=== PATIENT | female | born 1945 | race Caucasian/White ===

== ENCOUNTER 2016-06-02 07:29 | Day surgery (SDC) | payer MEDICARE ==
[2016-05-31 17:13] LABS: HEMATOCRIT 45.6 % (36.0-48.0); HEMOGLOBIN 14.7 g/dL (12.0-16.0)
[2016-05-31 17:28] LABS: CALCIUM, SERUM 9.5 MG/DL (8.5-10.4); CHLORIDE, SERUM 108 MMOL/L (96-112); CO2 (CARBON DIOXIDE) 28 MMOL/L (24-34); CREATININE 1.02 MG/DL (0.55-1.02); GFR AFRICAN AMERICAN 65 ML/MIN (>=60); GFR NON AFRICAN AMERICAN 56 ML/MIN (>=60); GLUCOSE, SERUM 79 MG/DL (60-99); POTASSIUM, SERUM 4.3 MMOL/L (3.5-5.3); SODIUM, SERUM 143 MMOL/L (135-148)
[2016-05-31 17:29] LABS: BUN (BLOOD UREA NITROGEN) 19 MG/DL (6-23)
--- NOTE | ~2016-06-02 | OP ---
Record Of Operation [facility] [address] [place]. [address] NAME: CHARLIE MATA : 45 STATUS : [facility]#: [id number] AGE: 70 ADM/REG DATE : 06/02/16 MR#: [id number] REPORT SERV DATE: 06/02/16 DICTATED BY: ISRAEL SHERIFF DATE: 06/02/16 REPORT STATUS : Draft TRANSCRIBED BY: FLORENTIN DATE: 06/02/16 DATE OF PROCEDURE: 06/02/2016 PREOPERATIVE DIAGNOSES: 1. Incarcerated bilateral inguinal hernias. 2. Coronary artery disease. 3. Obesity. 4. History of supraventricular tachycardia. 5. Gastroesophageal reflux disease. POSTOPERATIVE DIAGNOSES: 1. Incarcerated bilateral inguinal hernias (direct and indirect). 2. Coronary artery disease. 3. Obesity. 4. History of supraventricular tachycardia. 5. Gastroesophageal reflux disease. PROCEDURE: Open incarcerated direct and indirect bilateral inguinal hernias with mesh. ANESTHESIA: General. SURGEON: Israel Sheriff M.D. SCOURER: Geovani. COMPLICATIONS: None. DRAINS: None. ESTIMATED BLOOD LOSS: 30 mL. FINDINGS: The patient was noted to have bilateral incarcerated direct and indirect inguinal hernias. The right was larger than the left. OPERATIVE TECHNIQUE: The patient was brought to the operating room and placed on the table in supine position. She had preoperative IV antibiotics. She had sequential hose in place. She voided prior to the procedure. She underwent general endotracheal anesthesia and was prepped and draped in sterile fashion. A time-out was completed. Local anesthesia was instilled to the proposed skin incision sites that were previously marked two fingerbreadths above the pubic tubercle extending toward the anterior iliac spine. The incision began on the left side. The incision was carried down to the anterior fascia using electrocautery. The fascia was then divided in the direction of the superficial fibers with the Metzenbaum scissors through the superficial ring. Careful blunt dissection was ensued until the flaps were developed until the internal oblique aponeurosis, and the iliopubic tract were clearly identified. The patient noted to have a large direct inguinal defect. The round ligament was identified and carefully encircled and elevated with a [employer] drain. She was noted to Record Of Operation [facility] [address] [facility] [place]. [address] NAME: CHARLIE MATA : 45 STATUS : [facility] PAT#: [id number] AGE: 70 ADM/REG DATE : 06/02/16 MR#: [id number] REPORT SERV DATE: 06/02/16 DICTATED BY: ISRAEL SHERIFF DATE: 06/02/16 REPORT STATUS : Draft TRANSCRIBED BY: MODL DATE: 06/02/16 have a lipoma of the cord on the left side as well as the indirect inguinal hernia sac. These were grasped and carefully dissected away from the round ligament without difficulty. They were reduced en jolie backed into the deep ring which was then secured with a plug and the ring to the fascial edges with 2-0 Prolene sutures. The pelvic floor was then reconstructed after the direct inguinal hernia was carefully dissected away and reduced. The mesh was placed in the pelvic floor and secured to the pubic tubercle with a 2-0 Prolene suture and inferiorly was run to the internal oblique aponeurosis, lateral to where the round ligament exited the deep ring. An additional 2-0 Prolene suture was placed at the previous medial wound at the pubic tubercle and this secured the mesh to the internal oblique aponeurosis from medial to lateral. The two lids of the mesh were reapproximated lateral to the round ligament without tension. There was no evidence of any other hernias, defects, bleeding, or other abnormalities, and the wound was then thoroughly irrigated. The anterior fascia was reapproximated using a running 0 Vicryl suture. The skin and subcu tissues were reapproximated using running 3-0 Vicryl suture. The skin edges were then reapproximated using running subcuticular Monocryl suture. Dermabond was applied. At this time, attention was turned to the right side. The procedure proceeded exactly as described for the left and the findings were exactly the same except for a somewhat larger direct inguinal defect. The procedure proceeded exactly as described along with mesh placement and closure. After the glue was placed on the right incision, the patient was extubated, and taken to the recovery room in stable condition. All sponge and needle counts reported correct. FRANK/FLORENTIN Israel Sheriff M.D. / [id number] CC: Ghazal Franklin M.D. Thomas Weldon, M.D.
[~2016-06-02 07:29] MED LIST: ASAB PO; BEN25 PO; BIOTIN5 MG PO; CO Q-10100 MG PO; DETROLLA4 PO; DITROPAN XL10 MG PO; FLAXSEED OIL1000 MG PO; IMDUR30 PO; LIDODERM TOP; LIPITOR40 PO; LYRICA100 MG PO; NIACIN100 PO; SLO-NIACIN250 MG PO; SYN075 PO; TOPXL100 PO; VITAMIN B-2100 MG PO; VITAMIN D1000 UNI1 PO; VITE1000 PO; WELLXL150 PO
== END 2016-06-02 14:32 | disposition home or self-care (01) ==
LOC: SDC 07:29
PROVIDERS: Surgery
PROC: 0YUA0JZ Supplement Bilateral Inguinal Region with Synthetic Substitute, Open Approach (ICD-10-PCS; principal; 2016-06-02 09:00)
DX: K40.00 Bilateral inguinal hernia, with obstruction, without gangrene, not specified as recurrent (principal); I25.10 Atherosclerotic heart disease of native coronary artery without angina pectoris; E66.9 Obesity, unspecified; I47.1 Supraventricular tachycardia; E03.9 Hypothyroidism, unspecified; K21.9 Gastro-esophageal reflux disease without esophagitis; F41.9 Anxiety disorder, unspecified; E78.00 Pure hypercholesterolemia, unspecified; I10 Essential (primary) hypertension; Z88.5 Allergy status to narcotic agent; Z88.6 Allergy status to analgesic agent; Z95.5 Presence of coronary angioplasty implant and graft; Z98.890 Other specified postprocedural states; Z90.49 Acquired absence of other specified parts of digestive tract; Z98.84 Bariatric surgery status; Z98.51 Tubal ligation status
CPT/HCPCS: 80048; 85014; 85018; 93005; A9270-GY; C1781; J0690; J1885; J2250; J2270; J2405; J2550; J2710; J3010

== ENCOUNTER 2016-06-15 12:33 | Emergency (ER) | payer MEDICARE ==
[2016-06-15 14:58] LABS: BASOPHILS 0.6 %; BASOPHILS ABSOLUTE 0.06 10/3/uL (0.0-0.16); EOSINOPHILS 12.8 %; EOSINOPHILS ABSOLUTE 1.25 10/3/uL (0.0-0.53); HEMATOCRIT 45.5 % (36.0-48.0); HEMOGLOBIN 14.6 g/dL (12.0-16.0); IMMATURE GRANULOCYTES 0.2 %; IMMATURE GRANULOCYTES ABSOLUTE 0.02 10/3/uL (0.0-0.11); LYMPHOCYTES 31.2 %; LYMPHOCYTES ABSOLUTE 3.04 10/3/uL (0.67-4.30); MEAN CORPUS HGB CONC 32.1 g/dL (32.0-36.0); MONOCYTES 9.5 %; MONOCYTES ABSOLUTE 0.93 10/3/uL (0.21-1.20); NEUTROPHILS 45.7 %; NEUTROPHILS ABSOLUTE 4.44 10/3/uL (2.02-8.40); PLATELET COUNT 207 10/3/uL (150-400); RBC DISTRIBUTION WIDTH 12.9 % (12.0-16.0); RED CELL COUNT 4.64 10/6/uL (4.0-5.6)
[2016-06-15 14:59] LABS: ER CBC TAT 0 Hrs 08 Mins; MANUAL DIFF NO %; MEAN CORPUSCULAR HEMOGLOB 31.5 pg (26.0-34.0); MEAN CORPUSCULAR VOLUME 98.1 fL (80-100); WHITE BLOOD CELLS 9.7 10/3/uL (4.5-10.5)
[2016-06-15 15:49] LABS: A/G RATIO 0.8 (0.7-1.9); ALBUMIN 3.1 G/DL (3.5-5.0); CALCIUM, SERUM 9.6 MG/DL (8.5-10.4); CHLORIDE, SERUM 103 MMOL/L (96-112); CO2 (CARBON DIOXIDE) 28 MMOL/L (24-34); CREATININE 0.98 MG/DL (0.55-1.02); GFR AFRICAN AMERICAN 68 ML/MIN (>=60); GFR NON AFRICAN AMERICAN 58 ML/MIN (>=60); GLOBULIN 3.7 G/DL (2.5-4.1); GLUCOSE, SERUM 88 MG/DL (60-99); SGOT(AST) 17 U/L (5-40); SGPT(ALT) 16 U/L (5-65); SODIUM, SERUM 141 MMOL/L (135-148); TOTAL BILIRUBIN 0.9 MG/DL (0-1.2); TOTAL PROTEIN 6.8 G/DL (6.0-8.5)
[2016-06-15 15:51] LABS: BUN (BLOOD UREA NITROGEN) 14 MG/DL (6-23)
[2016-06-15 15:52] LABS: ALKALINE PHOSPHATASE 130 U/L (45-117)
== END 2016-06-15 17:37 | disposition home or self-care (01) ==
LOC: ER 12:33
PROVIDERS: Physician Assistant Medical
DX: L76.82 Other postprocedural complications of skin and subcutaneous tissue (principal); R22.9 Localized swelling, mass and lump, unspecified; K21.9 Gastro-esophageal reflux disease without esophagitis; Z88.5 Allergy status to narcotic agent; Z88.8 Allergy status to other drugs, medicaments and biological substances; Z79.82 Long term (current) use of aspirin; Z79.899 Other long term (current) drug therapy
CPT/HCPCS: 74176; 80053; 85025; 99283